=== PATIENT | female | born 1985 | race African-American/Black ===

== ENCOUNTER 2023-02-05 11:00 | Inpatient (IN) | payer BC ==
[2023-02-05 12:43] VITALS: BMI 48.6
[2023-02-16] MEDS ORDERED: fentaNYL PF 100 MCG/2 ML SYRINGE ONE (06:37)
[2023-02-16] MEDS ORDERED: SUGAMMADEX SODIUM 200 MG/2 ML VIAL ONE (06:38)
[2023-02-16] MEDS ORDERED: EPINEPHrine 1 MG/ML AMP ONE (06:50)
[2023-02-16] MEDS ORDERED: Bupivacaine 0.25% HCL 30 ML VIAL ONE (06:50)
[2023-02-16] MEDS ORDERED: Midazolam HCl 2 mg/2 ml Vial ONE (07:04)
[2023-02-16] MEDS ORDERED: Sodium Chloride 0.9% 100 ML ONE (07:38)
[2023-02-16] MEDS ORDERED: CEFAZOLIN 2 GM VIAL ONE (07:38)
[2023-02-16] MEDS ORDERED: Dexamethasone 20 MG/5 ML VIAL ONE (07:45)
[2023-02-16] MEDS ORDERED: PROPOFOL 200 MG/20 ML VIAL ONE (07:45)
[2023-02-16] MEDS ORDERED: Ondansetron PF 4 MG/2 ML Vial ONE (07:45)
[2023-02-16] MEDS ORDERED: Lidocaine 1% PF 5 ML VIAL ONE (07:45)
[2023-02-16] MEDS ORDERED: Rocuronium Bromide 10 MG/ML (10ML VIAL) ONE (07:45)
[2023-02-16] MEDS ORDERED: diphenhydrAMINE 50 MG/ML VIAL IVP PRN ×2 (08:20→10:13)
[2023-02-16] MEDS ORDERED: diphenhydrAMINE 25 MG CAP PO PRN (08:20)
[2023-02-16] MEDS ORDERED: Ondansetron PF 4 MG/2 ML Vial IVP PRN ×2 (08:20→10:13)
[2023-02-16] MEDS ORDERED: FENTANYL 500 MCG/10 ML VIAL 2,000 MCG in Sodium Chloride 0.9% 60 ML IV PRN (08:20)
[2023-02-16] MEDS ORDERED: Naloxone HCl 0.4 mg/ml Vial IV PRN (08:20)
[2023-02-16] MEDS ORDERED: Promethazine HCl 25 MG/ML VIAL IM PRN ×3 (08:20→10:13)
[2023-02-16] MEDS ORDERED: Ondansetron HCl/PF 4 MG/2 ML Vial IVP PRN (08:20)
[2023-02-16] MEDS ORDERED: diphenhydrAMINE 50 MG/ML VIAL IM PRN (08:20)
[2023-02-16] MEDS ORDERED: Communication Order-Pharmacy FS SCH (08:30)
[2023-02-16] MEDS ORDERED: Hydrocodone-Acetamin 15 ML UDCUP PO PRN (10:13)
[2023-02-16] MEDS: D5 1/2 NS w/20 mEq KCL 1,000 ML IV SCH ×2 (10:13→21:21)
[2023-02-16] MEDS ORDERED: Glucagon 1 MG/ML KIT IM PRN (10:13)
[2023-02-16] MEDS ORDERED: Dextrose 50% Abboject 50 ML SYRINGE SLOW IVP PRN (10:13)
[2023-02-16] MEDS ORDERED: hydrALAZINE 20 MG/ML VIAL SLOW IVP PRN (10:13)
[2023-02-16] MEDS ORDERED: Ipratropium/Albuterol 3 ML NEB NEB PRN (10:13)
[2023-02-16] MEDS ORDERED: Dextrose 5% in Water 1,000 ML IV PRN (10:13)
[2023-02-16] MEDS ORDERED: Morphine 4 MG/ML VIAL ONE ×2 (10:41→11:05)
[2023-02-16] MEDS ORDERED: Labetalol HCl 100 MG/20 ML VIAL ONE (10:41)
[2023-02-16] MEDS ORDERED: D5 1/2 NS w/20 mEq KCL 1,000 ML ONE (10:42)
[2023-02-16] MEDS ORDERED: Morphine 4 MG/ML VIAL SLOW IVP SCH ×2 (10:45→11:30)
[2023-02-16] MEDS ORDERED: Labetalol HCl 100 MG/20 ML VIAL SLOW IVP SCH ×2 (10:45→11:30)
[2023-02-16] MEDS ORDERED: FLU VACC QS2023-24(6MOS UP)/PF 60 MCG/0.5 ML SYRINGE IM ONE (15:00)
[2023-02-17] MEDS: D5 1/2 NS w/20 mEq KCL 1,000 ML IV SCH (05:38)
[2023-02-17 06:05] LABS: #Monocytes 0.4 thou/uL (0.11-0.59); #Neutrophils 8.5 thou/uL (1.40-6.50); %Lymphocytes 8.9 % (21.0-51.0); %Monocytes 4.5 % (0.0-10.0); %Neutrophils 86.1 % (42.0-75.0); Hematocrit 32.7 % (36.0-47.0); Hemoglobin 10.3 g/dL (12.0-16.0); Mean Corpuscular HGB CONC 31.5 g/dL (32.0-36.0); Mean Corpuscular Hemoglobin 23.5 pg (27.0-31.0); Mean Corpuscular Volume 74.5 fl (78.0-98.0); Mean Platelet Volume 9.5 fL (7.4-10.4); Platelet Count 289 10x3/uL (130-400); RBC Distribution Width 18.6 % (11.5-14.5); Red Blood Cell (RBC) Count 4.39 mill/uL (4.20-5.40); White Blood Cell (WBC) Count 9.8 10x3/uL (4.8-10.8)
[2023-02-17 07:00] LABS: CellaVision Operator ID LAB.GE; Microcytosis SLIGHT = 6-15 cells HPF (0-5); Platelet Adequacy Comment Platelets Normal; Polychromasia SLIGHT = 2-3 cells HPF (0-2)
[2023-02-17 07:04] LABS: Anion Gap 11 mmol/L (10-20); BUN (Urea Nitrogen) 5 mg/dL (7.0-18.7); Calc. Creatinine Clearance 198 mL/min (70-130); Calcium 9.1 mg/dL (7.8-10.44); Carbon Dioxide 19 mmol/L (22-29); Chloride 111 mmol/L (98-107); Estimated GFR 102; Glucose 141 mg/dL (70-105); Sodium 138 mmol/L (136-145)
[2023-02-17] MEDS ORDERED: Amlodipine 10 MG TAB PO SCH (09:00)
[2023-02-17] MEDS ORDERED: Pantoprazole 40 MG VIAL IVP SCH (09:00)
[2023-02-17 12:08] VITALS: BP 125/84; TEMP 97.9
== END 2023-02-17 13:05 | disposition home or self-care (01) | DRG 621 ==
LOC: SURG A 02-16 06:00
PROVIDERS: ADMIT Surgery; ATTEND Surgery
PROC: 0DB64Z3 Excision of Stomach, Percutaneous Endoscopic Approach, Vertical (ICD-10-PCS; principal; 2023-02-16)
PROC: 8E0W4CZ Robotic Assisted Procedure of Trunk Region, Percutaneous Endoscopic Approach (ICD-10-PCS; 2023-02-16)
DX: E66.01 Morbid (severe) obesity due to excess calories (principal); Z68.42 Body mass index [BMI] 45.0-49.9, adult; I10 Essential (primary) hypertension; E11.9 Type 2 diabetes mellitus without complications; Z79.899 Other long term (current) drug therapy; E78.00 Pure hypercholesterolemia, unspecified; D64.9 Anemia, unspecified; Z98.890 Other specified postprocedural states; Z82.49 Family history of ischemic heart disease and other diseases of the circulatory system
CPT/HCPCS: 36415; 80048; 85025; 88307; 93005; 93010; 94760; C9113; J0171; J1100; J1650; J2250; J2270; J2405; J2704; J3480; J3490; S0020

== ENCOUNTER 2023-03-10 12:38 | Day surgery (SDC) | payer BC ==
[~2023-03-10 12:38] MED LIST: Ondansetron PF 4 MG/2 ML Vial IVP PRN; Sodium Chloride 0.9% 1,000 ML IV SCH; Thiamine HCl 100 MG, Multivitamins, Adult 10 ML in Sodium Chloride 0.9% 1,000 ML IVPB SCH
[2023-03-10] MEDS ORDERED: Ondansetron PF 4 MG/2 ML Vial ONE (14:10)
[2023-03-10 14:47] VITALS: BP 133/94; TEMP 97.8
== END 2023-03-10 16:53 | disposition home or self-care (01) ==
LOC: ONC/OP 12:38
PROVIDERS: ATTEND Surgery
DX: E86.0 Dehydration (principal)
CPT/HCPCS: 96360; 96361; 96375; J2405; J3411; J7050

== ENCOUNTER 2023-03-23 09:04 | Day surgery (SDC) | payer BC ==
[2023-03-23 09:55] VITALS: BP 126/58; TEMP 97.8
[2023-03-23] MEDS ORDERED: FLU VACC QS2023-24(6MOS UP)/PF 60 MCG/0.5 ML SYRINGE IM ONE (10:00)
== END 2023-03-23 12:18 | disposition home or self-care (01) ==
LOC: ONC/OP 09:04
PROVIDERS: ATTEND Surgery
DX: E86.0 Dehydration (principal)
CPT/HCPCS: 96360; 96361; J3411; J7050

== ENCOUNTER 2023-04-05 11:49 | Day surgery (SDC) | payer BC ==
[2023-04-05 16:48] VITALS: BP 118/64; TEMP 98
== END 2023-04-05 16:59 | disposition home or self-care (01) ==
LOC: ONC/OP 11:49
PROVIDERS: ATTEND Surgery
DX: E86.0 Dehydration (principal)
CPT/HCPCS: 96361; 96365; J3411; J7050